=== PATIENT | female | born 1950 | race Caucasian/White ===

== ENCOUNTER 2016-08-31 10:46 | Day surgery (SDC) | payer MEDICARE, OTHER ==
--- NOTE | ~2016-08-31 | EGD ---
EGD REPORT [facility] [address] [address] NAME: MARIELA WOLF : [birth year] STATUS : REG [facility]#: [id number] AGE: 66 ADM/REG DATE : 08/31/16 MR#: [id number] REPORT SERV DATE: 08/31/16 DICTATED BY: LUH BENJAMIN DATE: 08/31/16 REPORT STATUS : Draft TRANSCRIBED BY: [facility] DATE: 08/31/16 Endoscopy Center Patient Name: Mariela Wolf Date of : 1950 Attending MD: LUH BENJAMIN MD Procedure Date No Time: 08/31/2016 Procedure: Upper GI endoscopy Indications: Iron deficiency anemia, Heme positive stool Referring MD: VIRGINIA SHERMAN Medicines: Monitored Anesthesia Care Complications: No immediate complications. Procedure: Pre-Anesthesia Assessment: - ASA Grade Assessment: III - A patient with severe systemic disease. After obtaining informed consent, the endoscope was passed under direct vision. Throughout the procedure, the patient's blood pressure, pulse, and oxygen saturations were monitored continuously. The GIF [id number] was introduced through the mouth, and advanced to the second part of duodenum. The upper GI endoscopy was accomplished without difficulty. The patient tolerated the procedure well. Findings: The examined esophagus was normal. Localized moderately erythematous mucosa without bleeding was found in the gastric antrum. Biopsies were taken with a cold forceps for histology. The cardia and gastric fundus were normal on retroflexion. The duodenal bulb and 2nd part of the duodenum were normal. Biopsies were taken with a cold forceps for histology. Impression: - Normal esophagus. - Erythematous mucosa in the antrum. Biopsied. - Normal duodenal bulb and 2nd part of the duodenum. Biopsied. Recommendation: - Await pathology results. Procedure Code(s): --- Professional --- 33504, Esophagogastroduodenoscopy, flexible, transoral; with biopsy, single or multiple Diagnosis Code(s): --- Professional --- K31.9, Disease of stomach and duodenum, unspecified EGD REPORT [facility] [address] [place], [place] [address]. [address] NAME: MARIELA WOLF : [birth year] STATUS : [place] [facility] [place]#: [id number] AGE: 66 ADM/REG DATE : 08/31/16 MR#: [id number] REPORT SERV DATE: 08/31/16 DICTATED BY: LUH BENJAMIN DATE: 08/31/16 REPORT STATUS : Draft TRANSCRIBED BY: [employer] DATE: 08/31/16 D50.9, Iron deficiency anemia, unspecified R19.5, Other fecal abnormalities CPT copyright 2013 [employer]. All rights reserved. The codes documented in this report are preliminary and upon lithographic proofer review may be revised to meet current compliance requirements. LUH BENJAMIN MD 08/31/2016 12:09 PM This report has been signed electronically. Number of Addenda: 0 Note Initiated On: 08/31/2016 11:55 AM Scope Withdrawal Time 0 hours 0 minutes [address] [place] [id number]
--- NOTE | ~2016-08-31 | EGD ---
EGD REPORT [facility] [address] [address] NAME: MARIELA WOLF : [birth year] STATUS : REG [facility]#: [id number] AGE: 66 ADM/REG DATE : 08/31/16 MR#: [id number] REPORT SERV DATE: 08/31/16 DICTATED BY: LUH BENJAMIN DATE: 08/31/16 REPORT STATUS : Draft TRANSCRIBED BY: [facility] DATE: 08/31/16 Endoscopy Center Patient Name: Mariela Wolf Date of : 1950 Attending MD: LUH BENJAMIN MD Procedure Date No Time: 08/31/2016 Procedure: Colonoscopy Indications: Heme positive stool, Iron deficiency anemia Referring MD: VIRGINIA SHERMAN Medicines: Monitored Anesthesia Care Complications: No immediate complications. Procedure: Pre-Anesthesia Assessment: - ASA Grade Assessment: III - A patient with severe systemic disease. After I obtained informed consent, the scope was passed under direct vision. Throughout the procedure, the patient's blood pressure, pulse, and oxygen saturations were monitored continuously. The PCF [id number] was introduced through the anus and advanced to the terminal ileum, with identification of the appendiceal orifice and IC valve. The colonoscopy was performed without difficulty. The patient tolerated the procedure well. The quality of the bowel preparation was good. Findings: The digital rectal exam was normal. Pertinent negatives include no palpable rectal lesions. Hemorrhoids were found during retroflexion and were mild. A sessile polyp was found in the ascending colon. The polyp was 3 mm in size. The polyp was removed with a cold biopsy forceps. Resection and retrieval were complete. A sessile polyp was found in the descending colon. The polyp was 5 mm in size. The polyp was removed with a cold biopsy forceps. Resection and retrieval were complete. A sessile polyp was found in the sigmoid colon. The polyp was 5 mm in size. The polyp was removed with a cold biopsy forceps. Resection and retrieval were complete. The terminal ileum appeared normal. Impression: - Hemorrhoids. - One 3 mm polyp in the ascending colon. Resected and retrieved. - One 5 mm polyp in the descending colon. Resected and retrieved. - One 5 mm polyp in the sigmoid colon. Resected and EGD REPORT [address] [address] NAME: MARIELA WOLF : 50 STATUS : REG [facility] PAT#: [id number] AGE: 66 ADM/REG DATE : 08/31/16 MR#: [id number] REPORT SERV DATE: 08/31/16 DICTATED BY: LUH BENJAMIN DATE: 08/31/16 REPORT STATUS : Draft TRANSCRIBED BY: [employer] DATE: 08/31/16 retrieved. Recommendation: - Patient has a contact number available for emergencies. The signs and symptoms of potential delayed complications were discussed with the patient. Return to normal activities tomorrow. Written discharge instructions were provided to the patient. - Regular diet. - Continue present medications. - Repeat colonoscopy for surveillance based on pathology results. - Return to GI clinic in 4 weeks. Procedure Code(s): --- Professional --- 47524, Colonoscopy, flexible, proximal to splenic flexure; with biopsy, single or multiple Diagnosis Code(s): --- Professional --- K64.9, Unspecified hemorrhoids D12.5, Benign neoplasm of sigmoid colon D12.4, Benign neoplasm of descending colon D12.2, Benign neoplasm of ascending colon R19.5, Other fecal abnormalities D50.9, Iron deficiency anemia, unspecified CPT copyright 2013 [employer]. All rights reserved. The codes documented in this report are preliminary and upon set designer review may be revised to meet current compliance requirements. LUH BENJAMIN MD 08/31/2016 12:37 PM This report has been signed electronically. Number of Addenda: 0 Note Initiated On: 08/31/2016 11:46 AM Scope Withdrawal Time 0 hours 11 minutes 44 seconds [address] [id number]
[~2016-08-31 10:46] MED LIST: ACET500CAP PO; ASAB PO; CARTIA XT240 MG/24 PO; CELEXA20 PO; IRON PO; MULTIVITAMIN PO; PRIN20 PO; SODBICAR10 PO; TRAZ100 PO; VITAMIN B-121000 MC1 SL; VITAMIN D31000 UNIT PO; ZOCOR10 PO
[2016-08-31 11:23] LABS: BUN (BLOOD UREA NITROGEN) 37 MG/DL (6-23); CALCIUM, SERUM 9.8 MG/DL (8.5-10.4); CHLORIDE, SERUM 112 MMOL/L (96-112); CO2 (CARBON DIOXIDE) 25 MMOL/L (24-34); GFR AFRICAN AMERICAN 8 ML/MIN (>=60); GFR NON AFRICAN AMERICAN 7 ML/MIN (>=60); GLUCOSE, SERUM 95 MG/DL (60-99); SODIUM, SERUM 146 MMOL/L (135-148)
[2016-08-31 11:24] LABS: CREATININE 5.89 MG/DL (0.55-1.02); POTASSIUM, SERUM 3.7 MMOL/L (3.5-5.3)
== END 2016-08-31 23:59 | disposition home or self-care (01) ==
LOC: DMU 10:46
PROVIDERS: Anesthesiology; Internal Medicine Gastroenterology
PROC: 0DBN8ZZ Excision of Sigmoid Colon, Via Natural or Artificial Opening Endoscopic (ICD-10-PCS; 2016-08-31)
PROC: 0DBM8ZZ Excision of Descending Colon, Via Natural or Artificial Opening Endoscopic (ICD-10-PCS; 2016-08-31)
PROC: 0DB68ZX Excision of Stomach, Via Natural or Artificial Opening Endoscopic, Diagnostic (ICD-10-PCS; principal; 2016-08-31 12:30)
PROC: 0DBK8ZZ Excision of Ascending Colon, Via Natural or Artificial Opening Endoscopic (ICD-10-PCS; 2016-08-31 12:30)
DX: D12.2 Benign neoplasm of ascending colon (principal); D12.4 Benign neoplasm of descending colon; D12.5 Benign neoplasm of sigmoid colon; K29.50 Unspecified chronic gastritis without bleeding; K31.89 Other diseases of stomach and duodenum; K64.9 Unspecified hemorrhoids; D50.9 Iron deficiency anemia, unspecified; E78.00 Pure hypercholesterolemia, unspecified; I12.0 Hypertensive chronic kidney disease with stage 5 chronic kidney disease or end stage renal disease; N18.5 Chronic kidney disease, stage 5; K50.90 Crohn's disease, unspecified, without complications; Z90.710 Acquired absence of both cervix and uterus; Z88.2 Allergy status to sulfonamides; Z98.890 Other specified postprocedural states; Z79.82 Long term (current) use of aspirin; Z79.899 Other long term (current) drug therapy
CPT/HCPCS: 80048; 88305